=== PATIENT | female | born 1995 | race Two or more races ===

== ENCOUNTER 2016-04-09 14:08 | Emergency (ER) | payer OTHER ==
[~2016-04-09] VITALS: Ht 167.6 cm; Wt 81.6 kg
[~2016-04-09 14:08] MED LIST: CLEOCIN300 MG PO; ENDOCET 5-3251 EACH PO; FIORICET 50-301 EACH PO; FLEXERIL5 MG PO; FLINTSTONES1 EACH PO; IBUPROFEN800 MG PO; IRON325 M1 PO; NOHOMEMEDS; PRENATAL TABLE1 EAC3 PO; TORADOL10 MG PO; TYLENOL EXTRA500 MG PO; VIBRAMYCIN100 MG PO; ZOFRAN ODT4 MG PO; ZYRTEC10 M3 PO
[2016-04-09 15:23] LABS: HEMATOCRIT 40.2 % (36.0-46.0); MCH 31.6 PG (29.0-34.0); MCHC 34.8 G/DL (30.0-36.0); MCV 90.7 FL (83-99); MEAN PLAT.VOLUME 10.2 uM^3 (9.5-12.4); PLATELET COUNT 240 K/uL (156-360); RBC DIS.WIDTH-CV 11.9 % (11.8-14.6); RBC DIS.WIDTH-SD 38.4 % (39-53); RED BLOOD COUNT 4.43 M/uL (3.80-5.20); WHITE BLOOD COUNT 5.8 K/uL (4.1-10.2)
[2016-04-09 15:33] LABS: CHLORIDE 110 mEq/L (99-109); SODIUM 141 mEq/L (136-147)
[2016-04-09 15:36] LABS: GLUCOSE 120 mg/dL (70-99)
[2016-04-09 15:37] LABS: ANION GAP 7 MEQ/L (2-14)
[2016-04-09 15:38] LABS: TOTAL BILIRUBIN 0.4 mg/dL (0.0-1.0)
[2016-04-09 15:39] LABS: ALKALINE PHOSPHATASE 74 IU/L (3-129); GFR ESTIMATE (CALCULATED) > 59 mL/min/
[2016-04-09 15:40] LABS: UREA NITROGEN (BUN) 7 mg/dL (9-23)
[2016-04-09 15:43] LABS: LIPASE 16 U/L (1.0-51.0)
[2016-04-09 15:50] LABS: QUANTITATIVE HCG < 4.0 MIU/ML
[2016-04-09 16:45] LABS: AMYLASE 79 IU/L (1-118)
[2016-04-09 16:48] LABS: ADD MIUA? YES; BILIRUBIN NEGATIVE; BLOOD NEGATIVE; COLOR YELLOW ((YELLOW)); GLUCOSE (STRIP) NEGATIVE; KETONES NEGATIVE; LEUKOCYTES NEGATIVE; NITRITE NEGATIVE; PROTEIN (STRIP) 100; SPECIFIC GRAVITY 1.026 (1.000-1.030); UROBILINOGEN 0.2 MG/DL (0.2-1.0)
[2016-04-09 16:58] LABS: BACTERIA NONE SEEN /HPF; EPITHELIAL CELLS RARE /HPF; MUCUS TRACE /LPF; RED BLOOD CELLS 0-5 /HPF (0-5); UCUL ADDED? NO; WHITE BLOOD CELLS 0-5 /HPF (0-5)
[2016-04-09] MEDS ORDERED: PEPCID AC20 MG PO (17:17)
[2016-04-09] MEDS ORDERED: ZOFRAN4 MG PO (17:17)
[2016-04-09 17:24] VITALS: BP 107/62
== END 2016-04-09 18:33 | disposition home or self-care (01) ==
LOC: EME 14:08
DX: T51.91XA Toxic effect of unspecified alcohol, accidental (unintentional), initial encounter (principal); R11.2 Nausea with vomiting, unspecified; F17.200 Nicotine dependence, unspecified, uncomplicated
CPT/HCPCS: 80053; 81003; 82150; 83690; 84702; 85027; 99281; 99284

== ENCOUNTER 2016-04-27 21:58 | Emergency (ER) | payer SELFPAY ==
[~2016-04-27] VITALS: Ht 167.6 cm; Wt 83.0 kg
[~2016-04-27 21:58] MED LIST changes: +PEPCID AC20 MG PO; +ZOFRAN4 MG PO
[2016-04-27 22:39] LABS: MCH 31.6 PG (29.0-34.0); MCHC 33.6 G/DL (30.0-36.0); RBC DIS.WIDTH-CV 11.6 % (11.8-14.6); RBC DIS.WIDTH-SD 39.9 % (39-53); RED BLOOD COUNT 4.15 M/uL (3.80-5.20)
[2016-04-27 22:48] LABS: CHLORIDE 111 mEq/L (99-109); POTASSIUM 4.1 mEq/L (3.7-5.4); SODIUM 143 mEq/L (136-147)
[2016-04-27 22:50] LABS: GLUCOSE 101 mg/dL (70-99)
[2016-04-27 22:52] LABS: ANION GAP 9 MEQ/L (2-14); TOTAL BILIRUBIN 0.2 mg/dL (0.0-1.0)
[2016-04-27 22:54] LABS: ALKALINE PHOSPHATASE 61 IU/L (3-129); GFR ESTIMATE (CALCULATED) > 59 mL/min/
[2016-04-27 22:55] LABS: UREA NITROGEN (BUN) 10 mg/dL (9-23)
[2016-04-27 23:06] LABS: QUANTITATIVE HCG < 4.0 MIU/ML
[2016-04-27 23:11] LABS: PLATELET COUNT 254 K/uL (156-360)
[2016-04-27 23:12] LABS: WHITE BLOOD COUNT 8.2 K/uL (4.1-10.2)
[2016-04-27 23:30] LABS: ADD MIUA? NO; BILIRUBIN NEGATIVE; BLOOD NEGATIVE; COLOR YELLOW ((YELLOW)); GLUCOSE (STRIP) NEGATIVE; KETONES NEGATIVE; LEUKOCYTES NEGATIVE; NITRITE NEGATIVE; PROTEIN (STRIP) NEGATIVE; SPECIFIC GRAVITY 1.021 (1.000-1.030); UCUL ADDED? NO; UROBILINOGEN 0.2 MG/DL (0.2-1.0)
[2016-04-28] MEDS ORDERED: NAPROSYN500 MG PO (01:56)
[2016-04-28] MEDS ORDERED: ZOFRAN4 MG PO (01:56)
[2016-04-28 02:32] VITALS: BP 129/81
[2016-05-01 13:13] LABS: CHLAMYDIA TRACHOMATIS NEGATIVE; NEISSERIA GONORRHOEAE NEGATIVE
== END 2016-04-28 02:32 | disposition home or self-care (01) ==
LOC: EME 21:58
DX: N83.202 Unspecified ovarian cyst, left side (principal); R10.30 Lower abdominal pain, unspecified; R11.0 Nausea; N20.0 Calculus of kidney; R19.7 Diarrhea, unspecified; Z11.3 Encounter for screening for infections with a predominantly sexual mode of transmission; F17.200 Nicotine dependence, unspecified, uncomplicated
CPT/HCPCS: 74176; 80053; 81003; 84702; 85027; 87491; 87591; 99281; 99284

== ENCOUNTER 2016-06-29 21:58 | Emergency (ER) | payer OTHER ==
[~2016-06-29] VITALS: Ht 167.6 cm; Wt 77.3 kg
[~2016-06-29 21:58] MED LIST changes: +NAPROSYN500 MG PO
[2016-06-29 22:41] LABS: HEMATOCRIT 38.9 % (36.0-46.0); MCH 31.7 PG (29.0-34.0); MCHC 33.9 G/DL (30.0-36.0); MCV 93.5 FL (83-99); MEAN PLAT.VOLUME 9.9 uM^3 (9.5-12.4); PLATELET COUNT 216 K/uL (156-360); RBC DIS.WIDTH-CV 11.9 % (11.8-14.6); RBC DIS.WIDTH-SD 41.8 % (39-53); RED BLOOD COUNT 4.16 M/uL (3.80-5.20); WHITE BLOOD COUNT 6.8 K/uL (4.1-10.2)
[2016-06-29 22:51] LABS: CHLORIDE 108 mEq/L (99-109)
[2016-06-29 22:52] LABS: INTER. NORMALIZED RATIO 1.1; POTASSIUM 4.1 mEq/L (3.7-5.4); PROTHROMBIN TIME 10.9 (9.2-11.2); PTT 27.1 (25-32); SODIUM 138 mEq/L (136-147)
[2016-06-29 22:53] LABS: GLUCOSE 95 mg/dL (70-99)
[2016-06-29 22:55] LABS: ANION GAP 8 MEQ/L (2-14)
[2016-06-29 22:57] LABS: GFR ESTIMATE (CALCULATED) > 59 mL/min/
[2016-06-29 22:58] LABS: UREA NITROGEN (BUN) 10 mg/dL (9-23)
[2016-06-30 02:37] VITALS: BP 118/75
== END 2016-06-30 02:34 | disposition home or self-care (01) ==
LOC: EME 21:58
PROVIDERS: Emergency Medicine
DX: S70.12XA Contusion of left thigh, initial encounter (principal); R10.2 Pelvic and perineal pain; R10.9 Unspecified abdominal pain; Y03.0XXA Assault by being hit or run over by motor vehicle, initial encounter; Y07.03 Male partner, perpetrator of maltreatment and neglect; F17.200 Nicotine dependence, unspecified, uncomplicated
CPT/HCPCS: 71010; 73552; 74177; 80048; 85027; 85610; 85730; 86900; 86901; 93005; 99281; 99284

== ENCOUNTER 2016-10-03 13:52 | Emergency (ER) | payer SELFPAY ==
[~2016-10-03] VITALS: Ht 167.6 cm; Wt 84.8 kg
[2016-10-03 14:22] LABS: ADD MIUA? YES; BILIRUBIN NEGATIVE; BLOOD LARGE; COLOR YELLOW ((YELLOW)); GLUCOSE (STRIP) NEGATIVE; KETONES NEGATIVE; LEUKOCYTES LARGE; NITRITE NEGATIVE; PROTEIN (STRIP) 30; SPECIFIC GRAVITY 1.012 (1.000-1.030); UROBILINOGEN 0.2 MG/DL (0.2-1.0)
[2016-10-03 14:40] LABS: BACTERIA NONE SEEN /HPF; EPITHELIAL CELLS 1+ /HPF; MUCUS NONE SEEN /LPF; RED BLOOD CELLS TNTC /HPF (0-5); UCUL ADDED? YES; WHITE BLOOD CELLS TNTC /HPF (0-5)
[2016-10-03 15:44] LABS: INTERNAL CONTROL VALID? YES
[2016-10-03] MEDS ORDERED: FLAGYL500 MG PO (16:27)
[2016-10-03] MEDS ORDERED: MACROBID100 MG PO (16:27)
[2016-10-03 16:39] VITALS: BP 114/59
[2016-10-04 14:37] LABS: CHLAMYDIA TRACHOMATIS NEGATIVE; NEISSERIA GONORRHOEAE NEGATIVE
== END 2016-10-03 16:52 | disposition home or self-care (01) ==
LOC: EME 13:52
PROVIDERS: Physician Assistant
DX: N30.00 Acute cystitis without hematuria (principal); N89.8 Other specified noninflammatory disorders of vagina; Z87.440 Personal history of urinary (tract) infections; Z91.040 Latex allergy status; Z91.013 Allergy to seafood; Z88.0 Allergy status to penicillin
CPT/HCPCS: 81003; 84703; 87077; 87086; 87186; 87210; 87491; 87591; 99281; 99283

== ENCOUNTER 2016-10-18 20:40 | Emergency (ER) | payer SELFPAY ==
[~2016-10-18] VITALS: Ht 167.6 cm; Wt 86.1 kg
[~2016-10-18 20:40] MED LIST changes: +FLAGYL500 MG PO; +MACROBID100 MG PO
[2016-10-18 20:58] VITALS: BP 126/60
== END 2016-10-18 21:47 | disposition left against medical advice (07) ==
LOC: EME 20:40 → RME 20:40
DX: Z53.21 Procedure and treatment not carried out due to patient leaving prior to being seen by health care provider (principal)

== ENCOUNTER 2017-05-02 16:48 | Emergency (ER) | payer OTHER ==
[~2017-05-02] VITALS: Ht 165.1 cm; Wt 87.9 kg
[2017-05-02 18:36] LABS: HEMATOCRIT 38.1 % (36.0-46.0); HEMOGLOBIN 13.2 G/DL (11.9-15.5); MCH 32.8 PG (29.0-34.0); MCHC 34.6 G/DL (30.0-36.0); MCV 94.5 FL (83-99); PLATELET COUNT 224 K/uL (156-360); RBC DIS.WIDTH-CV 11.8 % (11.8-14.6); RBC DIS.WIDTH-SD 41.2 % (39-53); RED BLOOD COUNT 4.03 M/uL (3.80-5.20); WHITE BLOOD COUNT 6.9 K/uL (4.1-10.2)
[2017-05-02 18:42] LABS: APPEARANCE SL.HAZY ((CLEAR)); BILIRUBIN NEGATIVE; BLOOD MODERATE; COLOR YELLOW ((YELLOW)); GLUCOSE (STRIP) NEGATIVE; KETONES NEGATIVE; LEUKOCYTES NEGATIVE; NITRITE NEGATIVE; PROTEIN (STRIP) NEGATIVE; SPECIFIC GRAVITY 1.014 (1.000-1.030)
[2017-05-02 18:47] LABS: CHLORIDE 107 mEq/L (99-109); POTASSIUM 3.6 mEq/L (3.7-5.4); SODIUM 140 mEq/L (136-147)
[2017-05-02 18:47] LABS: BACTERIA RARE /HPF; EPITHELIAL CELLS RARE /HPF; MUCUS TRACE /LPF; RED BLOOD CELLS 0-5 /HPF (0-5); UCUL ADDED? NO; WHITE BLOOD CELLS 0-5 /HPF (0-5)
[2017-05-02 18:48] LABS: GLUCOSE 105 mg/dL (70-99)
[2017-05-02 18:52] LABS: CREATININE 0.7 mg/dL (0.6-1.3); GFR ESTIMATE (CALCULATED) > 59 mL/min/
[2017-05-02 18:53] LABS: UREA NITROGEN (BUN) 10 mg/dL (9-23)
[2017-05-02 19:00] LABS: QUANTITATIVE HCG < 4.0 MIU/ML
[2017-05-02 20:17] VITALS: BP 133/69
== END 2017-05-02 20:17 | disposition home or self-care (01) ==
LOC: EME 16:48
PROVIDERS: Physician Assistant
DX: N92.0 Excessive and frequent menstruation with regular cycle (principal); F31.9 Bipolar disorder, unspecified; F32.9 Major depressive disorder, single episode, unspecified; F17.200 Nicotine dependence, unspecified, uncomplicated; Z91.040 Latex allergy status; Z88.0 Allergy status to penicillin
CPT/HCPCS: 76856; 80048; 81003; 84702; 85027; 99281; 99284

== ENCOUNTER 2017-07-01 22:14 | Emergency (ER) | payer OTHER ==
[~2017-07-01] VITALS: Ht 167.6 cm; Wt 90.2 kg
[2017-07-01 23:11] LABS: HEMATOCRIT 36.1 % (36.0-46.0); HEMOGLOBIN 12.5 G/DL (11.9-15.5); MCH 32.7 PG (29.0-34.0); MCHC 34.6 G/DL (30.0-36.0); MCV 94.5 FL (83-99); PLATELET COUNT 235 K/uL (156-360); RBC DIS.WIDTH-CV 11.9 % (11.8-14.6); RBC DIS.WIDTH-SD 41.3 % (39-53); RED BLOOD COUNT 3.82 M/uL (3.80-5.20); WHITE BLOOD COUNT 7.5 K/uL (4.1-10.2)
[2017-07-02 00:38] VITALS: BP 122/72
[2017-07-02 00:42] LABS: APPEARANCE SL.HAZY ((CLEAR)); BILIRUBIN NEGATIVE; BLOOD MODERATE; COLOR YELLOW ((YELLOW)); GLUCOSE (STRIP) NEGATIVE; KETONES NEGATIVE; LEUKOCYTES MODERATE; NITRITE NEGATIVE; PROTEIN (STRIP) NEGATIVE; SPECIFIC GRAVITY 1.018 (1.000-1.030); UROBILINOGEN 0.2 MG/DL (0.2-1.0)
[2017-07-02 00:48] LABS: BACTERIA NONE SEEN /HPF; EPITHELIAL CELLS 2+ /HPF; MUCUS TRACE /LPF; RED BLOOD CELLS 0-5 /HPF (0-5); UCUL ADDED? YES
== END 2017-07-02 00:39 | disposition home or self-care (01) ==
LOC: EME 22:14
DX: N92.0 Excessive and frequent menstruation with regular cycle (principal); R10.9 Unspecified abdominal pain; F17.200 Nicotine dependence, unspecified, uncomplicated; Z88.0 Allergy status to penicillin
CPT/HCPCS: 81003; 84702; 85027; 87086; 99281; 99284